=== PATIENT | female | born 1990 | race Two or more races ===

== ENCOUNTER 2020-06-03 07:39 | Emergency (ER) | payer OTHER ==
[~2020-06-03] VITALS: Ht 167.6 cm; Wt 108.2 kg
[2020-06-03 08:23] LABS: BILIRUBIN,URINE NEGATIVE (NEG); CLARITY,URINE CLEAR; COLOR,URINE YELLOW; NITRITE,URINE NEGATIVE (NEG); PH,URINE 7.5 (<5.0-8.0); PROTEIN,URINE NEGATIVE (NEG-TRACE); UROBILINOGEN,URINE 0.2 mg/dL (0.2 mg/dL)
[2020-06-03 08:30] LABS: SQUAMOUS EPITHELIAL CELL,UR MANY /LPF
[2020-06-03 08:31] LABS: BACTERIA,URINE MANY /HPF (0-FEW); RBC,URINE TNTC /HPF (0-2)
[2020-06-03] MEDS ORDERED: IV NORMAL SALINE 1000ML BAG 1,000 ML IV ONE (08:45)
--- NOTE | 2020-06-03 09:02 | PHYS DOC ---
Past Medical History Past Medical History: No Pertinent History Past Surgical History: No Surgical History Smoking Status: Former Smoker Alcohol Use: None General Adult EDM: Chief Complaint: VAGINAL BLEEDING HPI: HPI: Patient is a 29 year old female who presented to ER today for evaluation of vaginal bleeding and cramping. Patient is , and she says she is about 9 weeks , her last menstrual period is March 01, 2020. She had been p regnant 6 times, had two miscarries. Patient started having some cramping last night and then this morning when she used the bathroom she noticed some blood work. Tolerated. Patient denies any abdominal pain, no nausea vomiting, no fever. Patient denies any pelvic pain at this time. Patient described the bleeding as spotting. Review of Systems: Review of Systems: Constitutional: Denies fever or chills. [] Eyes: Denies change in visual acuity. [] HENT: Denies nasal congestion or sore throat. [] Respiratory: Denies cough or shortness of breath. [] Cardiovascular: Denies chest pain or edema. [] GI: Denies abdominal pain, nausea, vomiting, bloody stools or diarrhea. [] : Positive for vaginal bleeding. Musculoskeletal: Denies back pain or joint pain. [] Integument: Denies rash. [] Neurologic: Denies headache, focal weakness or sensory changes. [] Endocrine: Denies polyuria or polydipsia. [] Lymphatic: Denies swollen glands. [] Psychiatric: Denies depression or anxiety. [] Heart Score: Risk Factors: Risk Factors: DM, Current or recent (<one month) smoker, HTN, HLP, family history of CAD, obesity. Risk Scores: Score 0 - 3: 2.5% MACE over next 6 weeks - Discharge Home Score 4 - 6: 20.3% MACE over next 6 weeks - Admit for Clinical Observation Score 7 - 10: 72.7% MACE over next 6 weeks - Early Invasive Strategies Current Medications: Current Medications Medications (Trade) Dose Ordered Sig/Tania Start Time Stop Time Status Last Admin Dose Admin Sodium Chloride 1,000 ml @ 1,000 mls/hr 1X ONCE 06/03/20 08:45 06/03/20 09:44 06/03/20 08:46 1,000 MLS/HR Allergies: Allergies: Allergies Coded Allergies Type Severity Reaction Last Updated Verified No Known Drug Allergies 06/03/20 No Physical Exam: PE: Constitutional: Well developed, well nourished, no acute distress, non-toxic appearance. [] HENT: Normocephalic, atraumatic, bilateral external ears normal, oropharynx moist, no oral exudates, nose normal. [] Eyes: PERRLA, EOMI, conjunctiva normal, no discharge. [] Neck: Normal range of motion, no tenderness, supple, no stridor. [] Cardiovascular:Heart rate regular rhythm, no murmur [] Lungs & Thorax: Bilateral breath sounds clear to auscultation [] Abdomen: Bowel sounds normal, soft, no tenderness, no masses, no pulsatile masses. [] Skin: Warm, dry, no erythema, no rash. [] Back: No tenderness, no CVA tenderness. [] Extremities: No tenderness, no cyanosis, no clubbing, ROM intact, no edema. [] Neurologic: Alert and oriented X 3, normal motor function, normal sensory function, no focal deficits noted. [] Psychologic: Affect normal, judgement normal, mood normal. [] Current Patient Data: Labs: Laboratory Tests Test 06/03/20 07:45 06/03/20 08:11 Urine Collection Type Unknown Urine Color Yellow Urine Clarity Clear Urine pH 7.5 (<5.0-8.0) Urine Specific [place] 1.020 (1.000-1.030) Urine Protein Negative mg/dL (NEG-TRACE) Urine Glucose (UA) Negative mg/dL (NEG) Urine Ketones (Stick) Negative mg/dL (NEG) Urine Blood Large (NEG) Urine Nitrite Negative (NEG) Urine Bilirubin Negative (NEG) Urine Urobilinogen Dipstick 0.2 mg/dL (0.2 mg/dL) Urine Leukocyte Esterase Moderate (NEG) Urine RBC Tntc /HPF (0-2) Urine WBC 11-20 /HPF (0-4) Urine Squamous Epithelial Cells Many /LPF Urine Bacteria Many /HPF (0-FEW) Urine Mucus Marked /LPF POC Urine HCG, Qualitative Hcg positive (Negative) Vital Signs: Vital Signs Date Time Temp Pulse Resp B/P (MAP) Pulse Ox O2 Delivery O2 Flow Rate FiO2 06/03/20 07:45 98.1 82 16 138/70 (92) 100 Room Air 98.1 EKG: EKG: [] Radiology/Procedures: Radiology/Procedures: [facility] [address] [place] [address] IMAGING REPORT Signed PATIENT: SALAZAR CONNELL ACCOUNT: [id number] : 1990 LOCATION: ER AGE: 29 SEX: F EXAM STATUS: REG ER ORD. PHYSICIAN: QUINCY PRESSLEY DO REASON: vaginal bleeding, pelvic pain, 9 weeks , LMP 03/01/20 PROCEDURE: OB TRANSVAG OB TRANSVAG History: Reason: vaginal bleeding, pelvic pain, 9 weeks , LMP 03/01/20 / Spl. Instructions: / History: Comparison: None. Technique: Grayscale and color Doppler imaging of the pelvis was performed using transabdominal technique. Findings: The uterus measures 12.0 x 7.9 x 7.6 cm. Irregular intrauterine gestational sac identified measures 2.4 cm. No evidence of yolk sac or pole. Estimated gestational age by ultrasound 7 weeks 3 days. Right ovary measures 2.8 x 1.5 x 1.4 cm. Left ovary measures 2.6 x 1.7 x 1.7 cm. Normal Doppler flow to the ovaries bilaterally. No adnexal masses are seen. IMPRESSION: 1. Irregular intrauterine gestational sac without pole. Estimated gestational by ultrasound age 7 weeks 3 days. Findings suspicious for failed early . Recommend short-term ultrasound follow-up and serial beta-hCG testing. Electronically signed by: Thomas Stein DO (06/03/2020 11:08 AM) [id number] DICTATED and SIGNED BY: THOMAS STEIN DO DATE: 06/03/20 1108 Course & Med Decision Making: Course & Med Decision Making Pertinent Labs and Imaging studies reviewed. (See chart for details) Patient is a 29-year-old female who was evaluated in the ER due to vaginal bleeding, patient is in her first trimester , her hCG level was 8230, pelvic exam shows cervix closed, there is small amount of blood in her vaginal canal. Pelvic ultrasound showed show intrauterine sac but no heart beat was suspicious of failed . Patient blood type A+, she also had evidence of UTI. Patient will be discharged home, she is to follow-up with her MARKETING DEVELOPMENT MANAGER doctor on Saturday for reevaluation Alesha Disclaimer: Alesha Disclaimer: This electronic medical record was generated, in whole or in part, using a voice recognition dictation system. Departure Departure Impression: Primary Impression: Threatened in first trimester Additional Impression: UTI (urinary tract infection) Disposition: HOME, SELF-CARE Condition: STABLE Referrals: NO PCP (PCP) RAMA MARTINEZ Jr, MD please follow up with this MARKETING DEVELOPMENT MANAGER DOCTOR OR YOUR OWN MARKETING DEVELOPMENT MANAGER DOCTOR ON SATURDAY FOR REEVALUATION Patient Instructions: Threatened Miscarriage, Urinary Tract Infection Additional Instructions: Thank you for visiting our Emergency Department. We appreciate you trusting us with your care. If any additional problems come up don't hesitate to return to visit us. Please follow up with your primary care provider so they can plan additional care if needed and know about the problem that you had. If symptoms worsen come back to the Emergency Department. Any concerning symptoms that start such as chest pain, shortness of air, weakness or numbness on one side of the body, running high fevers or any other concerning symptoms return to the ER. Scripts Cephalexin (CEPHALEXIN) 500 Mg Tablet 1 TAB PO QID for 7 Days, #28 TAB Prov: QUINCY PRESSLEY DO 06/03/20 Justicifation of Admission Dx: Justifications for Admission: Justification of Admission Dx: N/A QUINCY PRESSLEY DO Jun 03, 2020 09:02
[2020-06-03 09:11] LABS: BASO # 0.1 x10^3/uL (0.0-0.2); BASO % 1 % (0-3); EOS # 0.1 x10^3/uL (0.0-0.7); EOS % 2 % (0-3); HEMATOCRIT 38.8 % (36.0-47.0); HEMOGLOBIN 13.1 g/dL (12.0-15.5); LYMPH # 1.9 x10^3/uL (1.0-4.8); LYMPH % 28 % (24-48); MEAN CORPUSCULAR HEMOGLOBIN 29 pg (25-35); MEAN CORPUSCULAR HGB CONC 34 g/dL (31-37); MEAN CORPUSCULAR VOLUME 85 fL (79-100); MONO # 0.5 x10^3/uL (0.0-1.1); MONO % 8 % (0-9); NEUT # 4.2 x10^3/uL (1.8-7.7); NEUT % 62 % (31-73); PLATELET COUNT 231 x10^3/uL (140-400); RED BLOOD COUNT 4.57 x10^6/uL (3.50-5.40); RED CELL DISTRIBUTION WIDTH 14.7 % (11.5-14.5); WHITE BLOOD COUNT 6.9 x10^3/uL (4.0-11.0)
[2020-06-03] MEDS ORDERED: cefTRIAXone IV Push 1 GM VIAL. IVP ONE (09:15)
[2020-06-03 09:19] LABS: CALCIUM 8.7 mg/dL (8.5-10.1); CREATININE 0.8 mg/dL (0.6-1.0); GFR 83.7; POTASSIUM 3.6 mmol/L (3.5-5.1)
[2020-06-03 09:25] LABS: ALBUMIN 3.4 g/dL (3.4-5.0); ALBUMIN/GLOBULIN RATIO 0.9 (1.0-1.7); TOTAL BILIRUBIN 0.4 mg/dL (0.2-1.0); TOTAL PROTEIN 7.3 g/dL (6.4-8.2)
--- NOTE | 2020-06-03 11:11 | RAD ---
OB TRANSVAG History: Reason: vaginal bleeding, pelvic pain, 9 weeks , LMP 03/01/20 / Spl. Instructions: / History: Comparison: None. Technique: Grayscale and color Doppler imaging of the pelvis was performed using transabdominal technique. Findings: The uterus measures 12.0 x 7.9 x 7.6 cm. Irregular intrauterine gestational sac identified measures 2.4 cm. No evidence of yolk sac or pole. Estimated gestational age by ultrasound 7 weeks 3 days. Right ovary measures 2.8 x 1.5 x 1.4 cm. Left ovary measures 2.6 x 1.7 x 1.7 cm. Normal Doppler flow to the ovaries bilaterally. No adnexal masses are seen. IMPRESSION: 1. Irregular intrauterine gestational sac without pole. Estimated gestational by ultrasound age 7 weeks 3 days. Findings suspicious for failed early . Recommend short-term ultrasound follow-up and serial beta-hCG testing. Electronically signed by: Thomas Stein DO (06/03/2020 11:08 AM) [id number]
[2020-06-03] MEDS ORDERED: CEPH500T PO (11:26)
[2020-06-03 11:30] VITALS: BP 102/59
== END 2020-06-03 11:37 | disposition home or self-care (01) ==
LOC: ER 07:39
DX: O20.0 Threatened abortion (principal); O23.41 Unspecified infection of urinary tract in pregnancy, first trimester; Z3A.01 Less than 8 weeks gestation of pregnancy; Z87.891 Personal history of nicotine dependence
CPT/HCPCS: 36415; 76817; 80053; 81001; 81025; 84702; 85025; 86900; 86901; 87086; 96361; 96374; 99285; J0696; J7030

== ENCOUNTER 2020-06-23 10:56 | Emergency (ER) | payer OTHER ==
[~2020-06-23] VITALS: Ht 165.1 cm; Wt 104.5 kg
[~2020-06-23 10:56] MED LIST: CEPH500T PO
--- NOTE | 2020-06-23 11:38 | PHYS DOC ---
Past Medical History Past Medical History: No Pertinent History Past Surgical History: Other Additional Past Surgical Histo: LASIK Smoking Status: Current Some Day Smoker Alcohol Use: Occasionally General Adult EDM: Chief Complaint: HEADACHE HPI: HPI: 29 yo F with no significant past medical history, presents the ED with complaints of "I don't feel well," stating yesterday she started feeling weak with multiple body aches, sweating and gradual onset bilateral frontal headache, some relief with Tylenol, last use was 5 AM. Patient reports she was seen here in May and diagnosed with a miscarriage and a UTI. Was called back for chlamydia treatment. Reports her was also treated and she is awaiting her OB appointment with Amanda at [facility] [place] on [place]. 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 Review of Systems: Review of Systems: Constitutional: Denies rigors Eyes: Denies change in visual acuity. [] HENT: Denies nasal congestion or sore throat. [] No hemoptysis Respiratory: Denies cough or shortness of breath. [] Cardiovascular: Denies chest pain or edema. [] No syncope GI: Denies abdominal pain, nausea, vomiting, bloody stools or diarrhea. [] : Denies dysuria. [] denies Hematuria, increased urinary frequency or urgency, denies any vaginal bleeding, abnormal vaginal discharge, itching or odor Musculoskeletal: Denies back pain or joint pain. [] Integument: Denies rash. [] Neurologic: Denies headache, focal weakness or sensory changes. [] No nuchal rigidity Endocrine: Denies polyuria or polydipsia. [] Lymphatic: Denies swollen glands. [] Psychiatric: Denies depression or anxiety. [] Heart Score: Risk Factors: Risk Factors: DM, Current or recent (<one month) smoker, HTN, HLP, family history of CAD, obesity. Risk Scores: Score 0 - 3: 2.5% MACE over next 6 weeks - Discharge Home Score 4 - 6: 20.3% MACE over next 6 weeks - Admit for Clinical Observation Score 7 - 10: 72.7% MACE over next 6 weeks - Early Invasive Strategies Allergies: Allergies: Allergies Coded Allergies Type Severity Reaction Last Updated Verified No Known Drug Allergies 06/03/20 No Physical Exam: PE: Constitutional: Well developed, well nourished, no acute distress, non-toxic appearance. [] Afebrile HENT: Normocephalic, atraumatic, bilateral external ears normal, oropharynx moist, no oral exudates, nose normal. [] Eyes: EOMI, conjunctiva normal, no discharge. [] Neck: Normal range of motion, no tenderness, supple, no stridor. [] Cardiovascular:Heart rate regular rhythm, no murmur [] Lungs & Thorax: Bilateral breath sounds clear to auscultation [] Abdomen: Bowel sounds normal, soft, no tenderness, no masses, no pulsatile masses. [] Skin: Warm, dry, no erythema, no rash. [] Back: No tenderness, no CVA tenderness. [] Extremities: No tenderness, no cyanosis, no clubbing, ROM intact, no edema. [] Neurologic: Alert and oriented X 3, normal motor function, normal sensory function, no focal deficits noted. [] Psychologic: Affect normal, judgement normal, mood normal. [] Current Patient Data: Vital Signs: Vital Signs Date Time Temp Pulse Resp B/P (MAP) Pulse Ox O2 Delivery O2 Flow Rate FiO2 06/23/20 11:05 99.2 89 17 111/71 (84) 97 Room Air 99.2 EKG: EKG: [] Radiology/Procedures: Radiology/Procedures: [] Course & Med Decision Making: Course & Med Decision Making Pertinent Labs and Imaging studies reviewed. (See chart for details) Concern for headache and myalgias in a well-appearing patient who is afebrile, no leukocytosis, no neurologic deficits or blurry vision or neck pain. Suspect viral process. Influenza test negative. Urinalysis contaminated-no obvious infection or hematuria. Covid test sent. Recommend quarantine until cover test is resulting-must be afebrile for 72 hours before returning to work. Tricked ED return precautions were given for worsening headache, neurologic deficits, fever, neck stiffness or difficulties breathing. Encouraged urgent outpatient follow-up with PMD in the next 2 days. Life-threatening processes were considered but are low suspicion at this time, given history and physical exam. Pt was educated on all prescription medications and adverse effects. All patient's questions were answered and pt was stable at time of discharge. COVID-19 CRITERIA: The patient was evaluated during the global COVID-19 pandemic, and that diagnosis was suspected/considered upon their initial presentation. Their evaluation, treatment and testing was consistent with current guidelines for patients who present with complaints or symptoms that may be related to COVID-19. Life-threatening differential includes meningitis, encephalitis, intracranial hemorrhage, obstructive hydrocephaly, CVA, carbon oxide poisoning, cerebral or cavernous venous thrombosis, hypertensive emergency, preeclampsia, giant cell arteritis, glaucoma, carotid or vertebral artery dissection, superior vena cava syndrome, infection, space-occupying lesions I spoken with the patient and her caregivers. I explained the patient's condition, diagnoses and treatment plan based on the information available to me at this time. I have answered the patient and her caregiver's questions and addressed any concerns. The patient and her caregivers have a good understanding of patient's diagnosis, condition and treatment plan as can be expected at this point. Vital signs have been stable. Patient's condition is stable and appropriate for discharge from the emergency department. Patient will pursue further outpatient evaluation with primary care physician or other designated or consulting physician as outlined in the discharge instructions. The patient and/or caregivers are agreeable to this plan of care and follow-up instructions have been explained in detail. The patient and/or caregivers have received these instructions in written form and have expressed an understanding of the discharge instructions. The patient and/or caregivers are aware that any significant change of condition or worsening of symptoms should prompt immediate return to this or the closest emergency department or call to 1Shakira Eduardo Disclaimer: Alesha Disclaimer: This electronic medical record was generated, in whole or in part, using a voice recognition dictation system. Departure Departure Impression: Primary Impression: Headache Additional Impressions: Myalgia Viral illness Disposition: 01 HOME, SELF-CARE Condition: STABLE Referrals: NO PCP (PCP) Family Medicine Address: [address] [place] [id number] Patient Instructions: General Headache Without Cause, Myalgia, Adult Additional Instructions: EMERGENCY DEPARTMENT GENERAL DISCHARGE INSTRUCTIONS Thank you for coming to [facility] Emergency Department (ED) today and trusting us with you care. We trust that you had a positive experience in our Emergency Department. If you wish to speak to the department management, you may call the Director at [phone]. YOUR FOLLOW UP INSTRUCTIONS ARE FOLLOWS: 1. Do you have a private Doctor? If you do not have a private doctor, please ask for a resource list of physicians or clinics that may be able to assist you with follow up care. 2. The Emergency Physicain has interpreted your x-rays. The X-Ray specialist will also review them. If there is a change in the findings, you will be notified in 48 hours when at all possible. 3. A lab test or culture has been done, your results will be reviewed and you will be notified if you need a change in treatment. ADDITIONAL INSTRUCTIONS AND INFORMATION: 1. Your care today has been supervised by a physician who is specially trained in emergency care. Many problems require more than one evaluation for a complete diagnosis and treatment. We recommend that you schedule your follow up appointment as recommended to ensure complete treatment of you illness or injury. If you are unable to obtain follow up care and continue to have a problem, or if your condition worsens, we recommend that you return to the ED. 2. We are not able to safely determine your condition over the phone nor are we able to give sound medical advice over the phone. For these safety reasons, if you call for medical advice we will ask you to come to the ED for further evaluation. 3. If you have any questions regarding these discharge instructions please call the ED at [phone]. SAFETY INFORMATION: In the interest of safety, wellness, and injury prevention; we encourage you to wear your sealbelt, if you smoke; quite smoking, and we encourage family to use a protective helmet for bicycling and other sporting events that present an increased risk for head injury. IF YOUR SYMPTOMS WORSEN OR NEW SYMPTOMS DEVELOP, OR YOU HAVE CONCERNS ABOUT YOUR CONDITION; OR IF YOUR CONDITION WORSENS WHILE YOU ARE WAITING FOR YOUR FOLLOW UP APPOINTMENT; EITHER CONTACT YOUR PRIMARY CARE DOCTOR, THE PHYSICIAN WHOSE NAME AND NUMBER YOU WERE GIVEN, OR RETURN TO THE ED IMMEDIATELY. Scripts Ibuprofen (IBUPROFEN) 600 Mg Tablet 600 MG PO PRN Q6HRS PRN for PAIN, #20 TAB take with food or milk Prov: RUBY FUENTES DO 06/23/20 RUBY FUENTES DO Jun 23, 2020 11:38
[2020-06-23] MEDS ORDERED: diphenhydrAMINE 50 MG/ML VIAL IVP ONE (11:45)
[2020-06-23] MEDS ORDERED: DEXAMETHASONE SOD PHOS 20 MG/5 ML VIAL. IV ONE (11:45)
[2020-06-23] MEDS ORDERED: METOCLOPRAMIDE HCL 10 MG/2 ML VIAL. IVP ONE (11:45)
[2020-06-23 12:48] LABS: BASO % 1 % (0-3); EOS % 0 % (0-3); HEMATOCRIT 39.3 % (36.0-47.0); HEMOGLOBIN 13.4 g/dL (12.0-15.5); LYMPH # 0.6 x10^3/uL (1.0-4.8); LYMPH % 14 % (24-48); MEAN CORPUSCULAR HEMOGLOBIN 28 pg (25-35); MEAN CORPUSCULAR HGB CONC 34 g/dL (31-37); MEAN CORPUSCULAR VOLUME 83 fL (79-100); MONO # 0.4 x10^3/uL (0.0-1.1); MONO % 11 % (0-9); NEUT # 3.1 x10^3/uL (1.8-7.7); NEUT % 74 % (31-73); PLATELET COUNT 225 x10^3/uL (140-400); RED BLOOD COUNT 4.72 x10^6/uL (3.50-5.40); RED CELL DISTRIBUTION WIDTH 13.8 % (11.5-14.5); WHITE BLOOD COUNT 4.1 x10^3/uL (4.0-11.0)
[2020-06-23 13:00] LABS: CALCIUM 8.8 mg/dL (8.5-10.1); CREATININE 0.7 mg/dL (0.6-1.0); GFR 97.6; POTASSIUM 4.5 mmol/L (3.5-5.1)
[2020-06-23 13:07] LABS: ALBUMIN 3.7 g/dL (3.4-5.0); TOTAL BILIRUBIN 0.2 mg/dL (0.2-1.0); TOTAL PROTEIN 7.4 g/dL (6.4-8.2)
[2020-06-23 13:17] LABS: INFLUENZA A PATIENT NEGATIVE (NEGATIVE); INFLUENZA B PATIENT NEGATIVE (NEGATIVE)
[2020-06-23 13:52] LABS: BILIRUBIN,URINE NEGATIVE (NEG); CLARITY,URINE CLEAR; COLOR,URINE YELLOW; NITRITE,URINE NEGATIVE (NEG); PROTEIN,URINE NEGATIVE (NEG-TRACE)
[2020-06-23 14:08] LABS: BACTERIA,URINE FEW /HPF (0-FEW); RBC,URINE 0 /HPF (0-2); WBC,URINE OCC /HPF (0-4)
[2020-06-23 14:27] LABS: U PREG PATIENT NEGATIVE (NEG)
[2020-06-23 14:40] VITALS: BP 109/64
[2020-06-23] MEDS ORDERED: IBUP-1007 PO (14:40)
--- NOTE | 2020-06-24 08:45 | NUR ---
IP: Informed pt of positive COVID results and need to quarantine for 14 days. Pt verbalized understanding.
== END 2020-06-23 15:05 | disposition home or self-care (01) ==
LOC: ER 10:56
DX: U07.1 COVID-19 (principal); B34.9 Viral infection, unspecified; F17.200 Nicotine dependence, unspecified, uncomplicated
CPT/HCPCS: 36415; 80053; 81001; 81025; 82550; 85025; 87086; 87804; 96374; 96375; 99285; C9803; J1100; J1200; J2765; U0003